=== PATIENT | male | born 1940 | race Caucasian/White ===

== ENCOUNTER → 2017-08-14 | Day surgery (SDC) | payer OTHER ==
[~2017-08-14] VITALS: Ht 167.6 cm; Wt 84.6 kg
[~2017-08-14] MED LIST: ACETAMINOPHEN 500 MG CPLT PO PRN; AMLO2.5T PO; ASPI81TA23 PO; ATOR40TA16 PO; ATROPINE SULFATE 1% OPHT SOLN 2 ML BTL ONE; BALANCED SALT SOLN OPHT IRRIG 15 ML BTL ONE; BOSW5TAB PO; CHLORHEXIDINE GLUCONATE 2 % 1 PACK (2 CLOTHS) TOPICAL PRN; CHRO1CAP7 PO; CIPR-9 PO; CYAN100042 PO; DEXAMETHASONE SOD PHOS 4 MG/ML VIAL ONE; DO NOT ADM ANY ANTICOAGULANT DRUGS PRN; EPINEPHrine HCL (1:1000) 1 MG/ML VIAL ONE; FOLI800T PO; INSULIN HUMAN REGULAR 1,000 UNITS/10 ML VIAL SQ PRN; LACTATED RINGER'S 1000 ML INJ 1,000 ML IV ONE; LACTATED RINGER'S 1000 ML IV PRN; LIDOCAINE HCL 1% PF 5 ML SYRINGE OTHER ONE; LOSA100T PO; MAGN500T5 PO; METO1TAB43 PO; METOPROLOL TARTRATE 25 MG TAB PO PRN; NOVOLOGP2 SQ; ONDANSETRON HCL 4 MG/2 ML VIAL IV PUSH ONE; PHENYLEPH/NS 1000 MCG/10 ML SYR IV ONE; POVIDONE IODINE 5% (ANTISEPSIS KIT) 4 APPLICATIONS EACH NARE PRN; PROPOFOL 200 MG/20 ML AMP IV ONE; SODIUM CHLORID 0.9% 500 ML IV PRN; STERILE WATER FOR INJECTION 20 ML VIAL ONE; TOBRAMYCIN/DEXAMETHASONE OPTH OINT 3.5 GM TUBE ONE; TRIAMCINOLONE ACETONIDE/PF 40 MG/ML OPTH VIAL ONE; VITACAP7 PO; ceFAZolin INJ 1,000 MG VIAL ONE; ePHEDrine/NS 25 MG/5 ML SYRINGE IV ONE; oxyCODONE/ACETAMINOPHEN 5 MG/325 MG TAB PO PRN
[2017-08-14 10:25] LABS: AUTOMATED NEUTROPHIL # 2.4 TH/MM3 (1.8-7.7); BASOPHIL % 0.8 % (0.0-2.0); EOSINOPHIL # 0.1 TH/MM3 (0-0.4); EOSINOPHIL % 2.8 % (0.0-4.0); HEMATOCRIT 38.1 % (39.0-51.0); HEMOGLOBIN 12.9 GM/DL (13.0-17.0); LYMPH % 24.5 % (9.0-44.0); LYMPHOCYTE # 0.9 TH/MM3 (1.0-4.8); MEAN CELL VOLUME 96.3 FL (80.0-100.0); MEAN CORPUSCULAR HEMOGLOBIN 32.7 PG (27.0-34.0); MEAN CORPUSCULAR HGB CONC 33.9 % (32.0-36.0); MEAN PLATELET VOLUME 9.7 FL (7.0-11.0); MONO % 7.6 % (0.0-8.0); MONOCYTE # 0.3 TH/MM3 (0-0.9); NEUT % 64.3 % (16.0-70.0); PLATELET COUNT 211 TH/MM3 (150-450); RED BLOOD COUNT 3.95 MIL/MM3 (4.50-5.90); WHITE BLOOD COUNT 3.8 TH/MM3 (4.0-11.0)
[2017-08-14] MEDS: PHENYLEPHRINE HCL 2.5% OPTH SOLN 2 ML BTL RIGHT EYE SCH ×2 (10:25→10:40)
[2017-08-14] MEDS: ATROPINE SULFATE 1% OPHT SOLN 5 ML BTL RIGHT EYE SCH ×2 (10:25→10:40)
[2017-08-14] MEDS: CYCLOPENTOLATE HCL 1% OPHT SOLN 2 ML BTL RIGHT EYE SCH ×2 (10:25→10:40)
[2017-08-14] MEDS: TROPICAMIDE 1% OPHT SOLN 15 ML BTL RIGHT EYE SCH ×2 (10:25→10:40)
--- NOTE | 2017-08-14 13:21 | MP ---
cc: MANA LEWIS M.D. DATE OF SURGERY 08/14/2017 PREOPERATIVE DIAGNOSIS History of severe proliferative diabetic retinopathy with recurrent vitreous hemorrhage despite panretinal photocoagulation, right eye. POSTOPERATIVE DIAGNOSIS History of severe proliferative diabetic retinopathy with recurrent vitreous hemorrhage despite panretinal photocoagulation with inferotemporal fractional detachment, right eye. SURGEON Dr. Mana Lewis ANESTHESIA General laryngeal mask anesthesia. INDICATIONS FOR PROCEDURE Mr. Osorio is a 77-year-old long-time diabetic who has severe proliferative diabetic retinopathy. He has had panretinal photocoagulation in the right eye in the past but despite that continues with hemorrhage. He wished to proceed electively with vitrectomy and additional laser photocoagulation as needed in his right eye to try and stabilize the eye and stop the hemorrhages. The risks and benefits of surgery were discussed with the patient and informed consent was obtained. No guarantee was made as to visual outcome. He was brought to [place] [id number] and placed on the operating table. Appropriate anesthesia monitoring devices were applied and he was placed under general anesthesia using a laryngeal mask. The right eye was identified as the operative site and prepped and draped in the usual sterile fashion. A lid speculum was placed. At this point an appropriate time-out was called with the team agreeing to the surgical site and planned procedure. Using the Darnell valved 23-gauge vitrectomy system, the trocar cannulas were placed 3.5-mm posterior to the limbus after first displacing the conjunctiva and with a beveled entrance to the sclera. The first one was placed at approximately 8:45 o'clock and verified to be in the posterior chamber. An infusion cannula was affixed to it and turned on. Two additional trocar cannulas were placed at 10 and 2 o'clock. Using the flat contact lens the eye was entered with the endoilluminator light pipe and vitrectomy cutter. A core vitrectomy was carried out. There was fibrovascular tissue on the optic nerve which was elevated and removed out to the mid-periphery. In the mid-peripheral retina inferotemporally there was a broad-based epicenter with large fibrotic component and traction detachment. The posterior hyaloid was trimmed of its attachment around this area and it also was whittled down. The BIOM wide-angle viewing system was used to perform the more peripheral vitrectomy so at the end of the case there was no more traction on that area. At that point laser photocoagulation using the endolaser probe and a power of 150 milliwatts and 0.1 second exposure was delivered to areas not already treated by the PRP. A total of 1269 laser spots were placed after which the fundus was inspected and no breaks were noted. An air-fluid exchange was performed, followed by exchange of the air for a 25% mixture of SF6. It should be noted that intraocular Kenalog was used for visualization of the various vitreous planes. The cannulas were then removed one by one with tamponade of the site with a cotton swab and diathermy to the overlying conjunctival wound. This left the eye with good pressure and no visible air leaks. Atropine drops were placed on the cornea, followed by subconjunctival injections of Ancef 125 mg in 0.5 cc and Decadron 2 mg in 0.5 cc. The lid speculum was removed and the patient was undraped. TobraDex ointment was placed on the cornea and then the right eye was patched and shielded. The patient had the laryngeal mask removed in the room and was returned to Recovery laying on his left side. When awake and alert, he will asked to do face-down positioning overnight. MD ALEKSANDR Swann/KAI /12:47 PM /12:59 PM
[2017-08-14 14:15] VITALS: BP 155/66; PULSE 53; RESP 16; TEMP 97.6; O2SAT 100
--- NOTE | 2017-08-14 22:51 | EKG ---
Date Performed: 08/14/2017 Time Performed: 09:37:22 PTAGE: 77 years EKG: SINUS BRADYCARDIA WITH FIRST DEGREE AV BLOCK MODERATE VOLTAGE CRITERIA FOR LVH, CONSIDER NO RMAL VARIANT ABNORMAL ECG PREVIOUS TRACING : 05/11/2012 15.21 Compared to prior tracing, previous ST/T wave changes no lo nger noted DOCTOR: Brayan Castro Interpretating Date/Time 08/14/2017 22:51:04
== END | disposition home or self-care (01) ==
LOC: HSDC 09:11
PROVIDERS: ATTEND Ophthalmology
DX: H43.11 Vitreous hemorrhage, right eye (principal); E10.3591 Type 1 diabetes mellitus with proliferative diabetic retinopathy without macular edema, right eye; H33.41 Traction detachment of retina, right eye; I10 Essential (primary) hypertension
CPT/HCPCS: 00145; 67040; 85025; 93005; J0171; J0690; J1100; J2370; J2405; J3010; J3300; J7120